=== PATIENT | female | born 1960 | race Caucasian/White ===

== ENCOUNTER 2016-05-08 19:02 | Emergency (ER) | payer OTHER ==
[2016-05-08 19:18] VITALS: PULSE 80; RESP 14; TEMP 99.1; O2SAT 93
[2016-05-08] MEDS ORDERED: METOCLOPRAMIDE 10 MG/2 ML VIAL IVP ONE (19:37)
[2016-05-08] MEDS ORDERED: KETOROLAC 30 MG/1 ML SDV IVP ONE (19:37)
[2016-05-08] MEDS ORDERED: NS 1,000 ML IV ONE (19:37)
[2016-05-08 20:39] VITALS: BP 120/83
--- NOTE | 2016-05-08 20:47 | UCPHY ---
H & P Patient Type: New Chief Complaint Nursing Narrative: sinus headache for 12 hours HPI/ROS: This patient complains of illness over the past 2 days. She started with mild sore throat 2 days ago and then yesterday developed nasal congestion fatigue and myalgias. Over the past 24 hours she has developed a headache similar to previous migraine headaches associated with the symptoms. Location is bifrontal aching throbbing in nature similar to previous migraines 8/10 peak intensity associated with vomiting. Her current intensity is 5/10 intensity headache SHe has ongoing nausea currently. She has associated photophobia. ROS: Low-grade subjective fevers, fatigue. No other constitutional symptoms. HEENT: No ear pain. No significant sore throat currently. Pulmonary: Minimal cough no pleuritic pain or shortness of breath cardiovascular: No complaints GI: No belly pain. : No complaints. 10 point ROS is otherwise negative Source: Patient Exam Limitations: No limitations - Personal History LMP (Females 10-55): Unknown Current Tetanus Diphtheria and Acellular Pertussis (TDAP): Unsure - Medical/Surgical History Hx Diabetes: No - Family History Significant Family History: No pertinent family hx - Social History Smoking Status: Never smoked Constitutional: Initial Vital Signs Temperature (C) 37.3 C 05/08/16 19:16 Heart Rate 80 05/08/16 19:16 Respiratory Rate 14 05/08/16 19:16 Blood Pressure 124/66 H 05/08/16 19:16 O2 Sat (%) 93 05/08/16 19:16 O2 Delivery Mode Room Air Allergies/Adverse Reactions: No Known Allergies Allergy (Unverified 11/22/13 11:04) Home Medications: Medication Instructions Recorded Ondansetron Odt [Zofran Odt] 4 - 8 mg PO Q4PRN PRN #4 tab 05/08/16 Ondansetron Odt [Zofran Odt] 4 - 8 mg PO Q4PRN PRN #4 tab 05/08/16 Oseltamivir Phosphate [Tamiflu 75 75 mg PO BID #10 cap 05/08/16 mg (*)] Medical Decision Making ED Course/Re-evaluation: Rapid influenza is positive for influenza A Course: IV normal saline bolus, Reglan and Benadryl and Toradol IV with reduction in her headache to to 3/10. Her nausea also resolved. She felt improved. I counseled the patient regarding influenza and migraine. She is treated with 1st dose of Tamiflu. She has no meningismus or concerning findings to suggest [employer] infection other than her headache winces very similar to previous migraines. I think she is safe for discharge home at this time - Data Points Laboratory Results: 05/08/16 19:30 Influenza Typ A,B (DFA) POSITIVE FOR FLU A H (NEGATIVE) Medications Given: Discontinued Medications Diphenhydramine HCl (Benadryl Injection) 25 mg IVP EDNOW ONE Stop: 05/08/16 19:38 Last Admin: 05/08/16 20:16 Dose: 25 mg Sodium Chloride (Ns) 1,000 mls @ 0 mls/hr IV ONCE ONE PRN Reason: Wide Open Stop: 05/08/16 19:38 Last Admin: 05/08/16 20:17 Dose: 1,000 mls Ketorolac Tromethamine (Toradol) 30 mg IVP EDNOW ONE Stop: 05/08/16 19:38 Last Admin: 05/08/16 20:16 Dose: 30 mg Metoclopramide HCl (Reglan Injection) 10 mg IVP EDNOW ONE Stop: 05/08/16 19:38 Last Admin: 05/08/16 20:16 Dose: 10 mg Oseltamivir Phosphate (Tamiflu) 75 mg PO EDNOW ONE Stop: 05/08/16 20:56 Last Admin: 05/08/16 21:01 Dose: 75 mg Departure - Departure Disposition: Home, Routine, Self-Care Clinical Impression: Influenza A, Migraine, Vomiting Condition: Fair Instructions: Migraine Headache (ED), Influenza (ED) Additional Instructions: Diagnosis: 1. Influenza A 2. Migraine 3. Vomiting Plan: Drink plenty fluids Continue ibuprofen-600 mg per 6 hours as needed for headache or aches or fever. Zofran for nausea vomiting Tylenol in addition if needed Avoid work or groups of people until 24 hours after your fever has resolved. Return for any significant worsening despite the treatment plan. Referrals: NONE *PRIMARY CARE P,. [Primary Care Provider] - As per Instructions Stand Alone Forms: Work Excuse Prescriptions: Ondansetron Odt [Zofran Odt] 4 - 8 mg PO Q4PRN PRN #4 tab PRN Reason: Vomiting Ondansetron Odt [Zofran Odt] 4 - 8 mg PO Q4PRN PRN #4 tab PRN Reason: Vomiting Oseltamivir Phosphate [Tamiflu 75 mg (*)] 75 mg PO BID #10 cap - PQRS PQRS Measurement: NA
[2016-05-08] MEDS ORDERED: OSELTAMIVIR PHOSPHATE 75 MG CAP PO ONE (20:55)
== END 2016-05-08 21:01 | disposition home or self-care (01) ==
LOC: CED 19:02
DX: J10.1 Influenza due to other identified influenza virus with other respiratory manifestations (principal); G43.909 Migraine, unspecified, not intractable, without status migrainosus; R11.10 Vomiting, unspecified
CPT/HCPCS: 87400-PO; 96361-PO; 96374-PO; 96375-PO; G0463-PO; J1200; J1885; J2765

== ENCOUNTER → 2018-07-25 | Outpatient (CLI) | payer OTHER ==
[~2018-07-25] MED LIST: GADOBUTROL 10 ML VIAL IVP ONE
== END ==
LOC: FIMAGING 06:38
PROVIDERS: ATTEND Otolaryngology
DX: J32.2 Chronic ethmoidal sinusitis (principal); H91.8X2 Other specified hearing loss, left ear
CPT/HCPCS: A9585